=== PATIENT | female | born 1950 | race Caucasian/White ===

== ENCOUNTER → 2016-12-15 | Outpatient (CLI) | payer OTHER ==
[~2016-12-15] MED LIST: AMLO5TAB4 PO; ATOR20TA; FLUC200T PO; HYDR25TA6; LEVO112T2 PO
== END | disposition home or self-care (01) ==
LOC: CFH 08:25
PROVIDERS: ATTEND Internal Medicine
DX: Z12.31 Encounter for screening mammogram for malignant neoplasm of breast (principal)
CPT/HCPCS: G0202

== ENCOUNTER → 2017-04-22 | Outpatient (CLI) | payer OTHER | END | disposition home or self-care (01) | LOC: CFH 09:10 | PROVIDERS: ATTEND Internal Medicine | DX: J84.10 Pulmonary fibrosis, unspecified (principal); J44.9 Chronic obstructive pulmonary disease, unspecified; E03.9 Hypothyroidism, unspecified; E78.2 Mixed hyperlipidemia; I10 Essential (primary) hypertension; F06.31 Mood disorder due to known physiological condition with depressive features; Z72.0 Tobacco use | CPT/HCPCS: 71250 ==

== ENCOUNTER 2017-08-06 13:41 | Observation (INO) | payer OTHER ==
[2017-08-03 09:47] LABS: BASOPHILS # (AUTO) 0.04 x10^3/uL (0-0.1); BASOPHILS % (AUTO) 1 % (0-1); EOSINOPHILS # (AUTO) 0.54 x10^3/uL (0-0.4); EOSINOPHILS % (AUTO) 8 % (1-7); LYMPHOCYTES # (AUTO) 1.34 x10^3/uL (1-3.4); LYMPHOCYTES % (AUTO) 19 % (22-44); MD NO; MEAN CORPUSCULAR HEMOGLOBIN 29.7 pg (27.0-34.8); MEAN CORPUSCULAR HGB CONC 33.3 g/dL (32.4-35.8); MEAN CORPUSCULAR VOLUME 89.2 fL (80-100); MEAN PLATELET VOLUME 7.3 fL (7.4-10.4); MONOCYTES # (AUTO) 0.53 x10^3/uL (0.2-0.8); MONOCYTES % (AUTO) 8 % (2-9); NEUTROPHILS % (AUTO) 65 % (42-75); PLATELET COUNT 301 x10^3/uL (130-400); RED BLOOD COUNT 4.65 x10^6/uL (3.82-5.3); RED CELL DISTRIBUTION WIDTH 14.5 % (9.6-15.2)
[2017-08-03 09:56] LABS: ANION GAP 7 mmol/L (5-15); CALCIUM 8.6 mg/dL (8.5-10.1); CHLORIDE 109 mmol/L (98-107); CREATININE 0.74 mg/dL (0.55-1.02)
[~2017-08-06] VITALS: Ht 165.1 cm; Wt 95.5 kg
[~2017-08-06 13:41] MED LIST changes: -ATOR20TA; +ATOR20TA PO; +FLUT1AER INH; +sertraline PO
[2017-08-06 14:59] VITALS: BP 134/89
[2017-08-06] MEDS ORDERED: LACTATED RINGERS 1,000 ML IV SCH (15:01)
[2017-08-06] MEDS ORDERED: MIDAZOLAM 1 MG/ML, 2ML ONE (15:02)
[2017-08-06] MEDS ORDERED: PROPOFOL 10 MG/ML, 20ML ONE ×2 (15:02)
[2017-08-06] MEDS ORDERED: FENTANYL PF 250 MCG/5ML ONE (15:02)
[2017-08-06] MEDS ORDERED: SUCCINYLCHOLINE 20 MG/ML, 10ML ONE (15:03)
[2017-08-06] MEDS ORDERED: EPINEPHRINE 1 MG/ML, 1ML ONE (15:07)
[2017-08-06] MEDS ORDERED: EPINEPHRINE TOPICAL SOLN 1 MG/ML, 30ML ONE (15:07)
[2017-08-06] MEDS ORDERED: BACITRACIN OINT 500U/GM, 15 GM ONE (15:07)
[2017-08-06] MEDS ORDERED: OXYMETAZOLINE NASAL SPRAY 0.05%, 15ML ONE (15:07)
[2017-08-06] MEDS ORDERED: FLUORESCEIN OPHTHALMIC 1 MG STRIP ONE (15:07)
[2017-08-06] MEDS ORDERED: LIDOCAINE 1%, 20ML ONE (15:08)
[2017-08-06] MEDS ORDERED: CEFAZOLIN 1,000 MG ONE (15:43)
[2017-08-06] MEDS ORDERED: ONDANSETRON 2MG/ML, 2ML ONE ×2 (15:58→19:28)
[2017-08-06] MEDS ORDERED: DEXAMETHASONE 4 MG/ML, 1ML ONE ×2 (15:58)
[2017-08-06] MEDS ORDERED: EPHEDRINE 50 MG/ML, 1ML ONE (16:16)
[2017-08-06] MEDS ORDERED: LIDOCAINE 1%-EPI 1:100K, 20ML INFIL ONE (16:23)
[2017-08-06] MEDS ORDERED: HYDROmorphone 2 MG/ML, 1ML ONE (19:00)
[2017-08-06] MEDS ORDERED: POTASSIUM CHLORIDE 20 MEQ in D5%-0.45% NACL 1,000 ML IV SCH (20:06)
[2017-08-06] MEDS ORDERED: hydrALAzine 20 MG/ML, 1ML IV PRN ×2 (20:30)
[2017-08-06] MEDS ORDERED: PROMETHAZINE 12.5 MG SUPP PR PRN (20:30)
[2017-08-06] MEDS ORDERED: ACETAMINOPHEN 325 MG TABLET PO PRN (20:30)
[2017-08-06] MEDS ORDERED: ALBUTEROL SULFATE 2.5 MG/3 ML NPPB PRN (20:30)
[2017-08-06] MEDS ORDERED: PROMETHAZINE 25 MG/ML, 1ML IV PRN (20:30)
[2017-08-06] MEDS ORDERED: MEPERIDINE/PF 25MG/0.5ML IVPush PRN (20:30)
[2017-08-06] MEDS ORDERED: DIPHENHYDRAMINE 25 MG CAPSULE PO PRN (20:30)
[2017-08-06] MEDS ORDERED: ONDANSETRON 2MG/ML, 2ML IVPush PRN ×2 (20:30)
[2017-08-06] MEDS ORDERED: HYDROmorphone 1 MG/ML, 1ML IV PRN (20:30)
[2017-08-06] MEDS ORDERED: LABETALOL 5MG/ML, 20ML IV PRN (20:30)
[2017-08-06] MEDS ORDERED: FENTANYL PF 100 MCG/2ML IV PRN (20:30)
[2017-08-06] MEDS: OXYcodone 5 MG/5 ML ORAL.SOL UDC PO PRN ×2 (20:45→21:30)
[2017-08-06] MEDS ORDERED: OXYcodone 5 MG/5 ML ORAL.SOL UDC ONE ×2 (20:47→21:34)
[2017-08-06] MEDS ORDERED: ACETAMINOPHEN 650 MG/20.3 ML UDC ONE (20:47)
[2017-08-06 23:27] VITALS: BP 108/84
[2017-08-07] MEDS: HYDROcodone/APAP 5/325 TABLET PO PRN ×2 (02:08→06:20)
[2017-08-07 03:42] VITALS: BP 130/79
[2017-08-07] MEDS ORDERED: LEVOTHYROXINE 112 MCG TABLET PO SCH (06:00)
[2017-08-07 07:33] VITALS: BP 133/83
[2017-08-07] MEDS ORDERED: AMLODIPINE 5 MG TABLET PO SCH (09:00)
[2017-08-07] MEDS ORDERED: FLUTICASONE/VILANTEROL 100-25MCG/INH INH SCH (09:00)
[2017-08-07] MEDS ORDERED: HYDR-3240 PO (09:24)
[2017-08-07] MEDS ORDERED: PRED5TAB19 PO (09:25)
[2017-08-07] MEDS ORDERED: ONDA4TAB10 PO (09:26)
== END 2017-08-07 10:15 | disposition home or self-care (01) ==
LOC: OR 13:41 → 4NOR 22:10 → OR 23:57
PROVIDERS: ADMIT Student in an Organized Health Care Education/Training Program; ATTEND Student in an Organized Health Care Education/Training Program
DX: J34.2 Deviated nasal septum (principal); J32.0 Chronic maxillary sinusitis; J32.2 Chronic ethmoidal sinusitis; J32.3 Chronic sphenoidal sinusitis; J32.1 Chronic frontal sinusitis; J33.9 Nasal polyp, unspecified; J34.3 Hypertrophy of nasal turbinates; I10 Essential (primary) hypertension; J44.9 Chronic obstructive pulmonary disease, unspecified
CPT/HCPCS: 30140; 30520; 31240; 31259; 31267; 31276; 36415; 80048; 85025; 88304; 88311; 93005; G0378; J0171; J0330; J0690; J1100; J1170; J2250; J2405; J2704; J3010; J3480; J3490; J7512; S1090

== ENCOUNTER → 2018-09-16 | Outpatient (CLI) | payer OTHER ==
[~2018-09-16] MED LIST changes: +HYDR-3240 PO; +ONDA4TAB10 PO; +PRED5TAB19 PO
== END | disposition home or self-care (01) ==
LOC: CFH 15:40
PROVIDERS: ATTEND Internal Medicine
DX: J44.9 Chronic obstructive pulmonary disease, unspecified (principal)
CPT/HCPCS: 71046

== ENCOUNTER → 2018-10-08 | Outpatient (CLI) | payer OTHER | END | disposition home or self-care (01) | LOC: CFH 14:05 | PROVIDERS: ATTEND Internal Medicine | DX: R91.8 Other nonspecific abnormal finding of lung field (principal); J44.9 Chronic obstructive pulmonary disease, unspecified; I51.7 Cardiomegaly | CPT/HCPCS: 71250 ==

== ENCOUNTER 2018-12-31 10:30 | Outpatient (CLI) | payer OTHER | END 2018-12-31 23:59 | disposition home or self-care (01) | LOC: CFH 10:30 | PROVIDERS: ATTEND Internal Medicine | DX: Z12.31 Encounter for screening mammogram for malignant neoplasm of breast (principal) | CPT/HCPCS: 77063; 77067 ==

== ENCOUNTER → 2019-11-10 | Outpatient (CLI) | payer OTHER, MEDICARE | END | disposition home or self-care (01) | LOC: CFH 10:50 | PROVIDERS: ATTEND Internal Medicine | DX: R91.1 Solitary pulmonary nodule (principal); J98.11 Atelectasis; K76.0 Fatty (change of) liver, not elsewhere classified; J44.9 Chronic obstructive pulmonary disease, unspecified; I11.9 Hypertensive heart disease without heart failure; Z87.891 Personal history of nicotine dependence | CPT/HCPCS: 71250 ==

== ENCOUNTER 2019-12-21 09:38 | Outpatient (CLI) | payer MEDICARE, OTHER ==
[2019-12-21] MEDS ORDERED: OMNIPAQUE 350 MG/ML, 100ML BOTTLE ONE (14:40)
== END 2019-12-21 23:59 | disposition home or self-care (01) ==
LOC: CFH 09:38
PROVIDERS: ATTEND Internal Medicine Gastroenterology
DX: K57.30 Diverticulosis of large intestine without perforation or abscess without bleeding (principal); D35.02 Benign neoplasm of left adrenal gland; N28.1 Cyst of kidney, acquired; K63.5 Polyp of colon
CPT/HCPCS: 74177; 82565; Q9967

== ENCOUNTER → 2020-01-03 | Outpatient (CLI) | payer OTHER, MEDICARE | END | disposition home or self-care (01) | LOC: CFH 14:12 | PROVIDERS: ATTEND Internal Medicine | DX: Z12.31 Encounter for screening mammogram for malignant neoplasm of breast (principal) | CPT/HCPCS: 77063; 77067 ==

== ENCOUNTER → 2020-11-14 | Outpatient (CLI) | payer MEDICARE, OTHER ==
[~2020-11-14] MED LIST changes: +HYDR-2214 PO; -HYDR-3240 PO
== END | disposition home or self-care (01) ==
LOC: CFH 13:14
PROVIDERS: ATTEND Internal Medicine
DX: R91.1 Solitary pulmonary nodule (principal); J44.9 Chronic obstructive pulmonary disease, unspecified
CPT/HCPCS: 71250

== ENCOUNTER → 2021-01-07 | Outpatient (CLI) | payer MEDICARE, OTHER | END | disposition home or self-care (01) | LOC: CFH 10:50 | PROVIDERS: ATTEND Internal Medicine | DX: Z12.31 Encounter for screening mammogram for malignant neoplasm of breast (principal) | CPT/HCPCS: 77063; 77067 ==